=== PATIENT | male | born 1975 | race Caucasian/White ===

== ENCOUNTER 2023-08-01 13:06 | Day surgery (SDC) | payer OTHER, SELFPAY ==
[2023-07-26 13:50] VITALS: BMI 36.1
[2023-08-01] VITALS (7 sets, daily range): BP systolic 140–169; BP diastolic 87–95; PULSE 61–79; RESP 10–16; TEMP 36.8–36.9; O2SAT 95–99; BMI 35.4
[2023-08-01] MEDS: OXYMETAZOLINE NASAL SPRAY 30 ML 2 SPRAYS NASAL (13:56)
[2023-08-01] MEDS: LACTATED RINGERS 1,000 ML 42 ML IV ×2 (14:03→15:56)
--- NOTE | 2023-08-01 14:34 | P.HP_ITS ---
History of Present Illness History of Present Illness Time Patient Seen: 14:34 Chief complaint: Endoscopic Sinus Surgery Narrative: 48-year-old male presents after being seen in clinic 04/10/2023, no interval health changes. Persistent overall head pressure/headache with known persistent sinus disease when last tested 04/09/2023. Continues nasal pillow CPAP. Wishes to proceed with surgery. He received medical clearance 04/23/2023. [facility] Medical History GERD (gastroesophageal reflux disease) Chronic pansinusitis HLD (hyperlipidemia) HTN (hypertension) ZHAO on CPAP Surgical History Hx of oral surgery (08/2022) Hx of colonoscopy (10/30/21) History of ankle surgery Social History household members: spouse Smoking Status: Never smoker alcohol intake: current Meds Home Medications and Allergies Home Medications Medication Instructions Recorded Confirmed Type atorvastatin 40 mg tablet 40 mg PO BEDTIME 07/26/23 08/01/23 History losartan 100 mg tablet 100 mg PO BEDTIME 07/26/23 08/01/23 History omeprazole 20 mg tablet,delayed 20 mg PO QAM 07/26/23 08/01/23 History release Allergies Allergy/AdvReac Type Severity Reaction Status Date / Time cyclobenzaprine AdvReac Doesn't Verified 08/01/23 13:40 [From Flexeril] feel right for days Review of Systems Review of Systems Narrative: Negative except as listed in the HPI Exam Vital Signs (past 8 hours): - 08/01/23 13:45 Temperature 98.5 F Pulse Rate 61 Respiratory Rate 16 Blood Pressure 146/87 H Pulse Oximetry 99 Oxygen Delivery Method Room Air Oxygen Delivery Method Room Air Narrative Exam Narrative: Well-developed well-nourished, heart regular rate and rhythm without murmur, lungs clear to auscultation bilaterally Assessment & Plan Assessment & Plan narrative: Assessment: Chronic rhinosinusitis, facial pain, headache, ZHAO on CPAP Plan: Following discussion of the material risks benefits complications and alternatives, the patient elected to proceed.
--- NOTE | 2023-08-01 14:34 | PM.PREOP ---
Pre-operative Note Interval Note History & Physical reviewed/Exam performed by Physician: Yes Changes to H&P: No
--- NOTE | 2023-08-01 14:36 | PM.OP.1 ---
Operative Date/Time/Diagnoses Date of procedure: 08/01/23 Time of procedure: 16:14 Pre-op diagnosis: Chronic rhinosinusitis, facial pain, headache, ZHAO on CPAP Post-op diagnosis: same (Mild nasal polyposis) Procedure & Clinicians Procedure: 1. Bilateral endoscopic maxillary antrostomy 2. Bilateral endoscopic anterior ethmoidectomy 3. LEFT ameya bullosa excision Same procedure as scheduled: Yes Indications: 48 Year old with the above diagnoses incompletely managed with medical therapy presents for the above procedure. Following discussion of the material risks benefits complications and alternatives, the parents elected to proceed. Surgeon: Fei Silva Click Yes if Unassisted: Yes Anesthesia Type: General and Local Operative Notes Findings: Inflammation of ethmoids with small poyps visible, I penetrated the RIGHT basal lamella to enter the posterior ethmoids. Ameya bullosa LEFT excised, RIGHT middle turbinate reduced. Estimated Blood Loss (mL): 150 Procedure in detail: Following identification and confirmation of consent as well as preoperative Afrin nasal spray, the patient was brought to the operating room suite and placed in the supine position. General endotracheal anesthesia was administered. Following sterile prep and drape, under endoscopic guidance the posterior and anterior superior insertion of each middle turbinate was then infiltrated with additional local anesthetic via spinal needle. Quarter-inch cotton pledgets saturated with 1-1000 epinephrine were placed in the middle meatus bilaterally and left in place for at least 10 minutes. Beginning on the left side, the middle turbinate was slightly medialized and the uncinate process was identified with uncinectomy performed via the backbiting forceps and the microdebrider. The natural os of the maxillary sinus was identified and enlarged posteriorly and inferiorly with forceps and the microdebrider. Anterior ethmoidectomy was performed by removing the ethmoid bulla with the microdebrider. The lateral portion of the LEFT ameya bullosa was resected to improve accesss. This procedure was repeated on the right side with nearly identical findings, although no ameya bullosa was resected, and I did enter the posterior ethmoids on the RIGHT only. The procedure completed, sponge and needle counts were correct and the patient was extubated in the operating room and taken to recovery room in stable condition without known complication. Complications: none Post-operative Condition: stable Disposition: same day surgery Plan for aftercare: Nasal saline every hour while awake, begin irrigations t.i.d. tomorrow, Tylenol alternating with Advil for pain control, oxycodone for breakthrough pain. Elevate head of bed, no nose blowing, no straining for 2 weeks. Follow-up in 1 week. CPAP at all times while asleep.
[2023-08-01] MEDS: ACETAMINOPHEN IV 1,000 MG/100 ML VIAL 400 MG IV (15:00)
--- NOTE | 2023-08-01 15:15 | SUR.OPER ---
Supine on padded OR bed, head on pillow, arms padded and tucked at sides, legs uncrossed, safety belt at thigh, tape over blanket over lower legs .
[2023-08-01] MEDS: EPINEPHrine 1 MG/ML 6 MG TOP (15:20)
[2023-08-01] MEDS: LIDOCAINE 1% W/EPI 20 ML INJ (15:20)
[2023-08-01] MEDS: OXYCODONE IR 5 MG TABLET PO (16:47)
== END 2023-08-01 17:07 | disposition home or self-care (01) ==
PROVIDERS: PCP Nurse Practitioner Family; Referring Provider Otolaryngology; Visit Provider Otolaryngology
PROC: (CPT 31231; principal; 2023-08-01 14:30)
DX: J32.4 Chronic pansinusitis (principal); G47.33 Obstructive sleep apnea (adult) (pediatric)
CPT/HCPCS: 31254; 31256; 31240; J0136; J0171; J2250; J3010